=== PATIENT | female | born 1945 | race Two or more races ===

== ENCOUNTER 2020-05-05 09:59 | Outpatient (CLI) | payer OTHER ==
[~2020-05-05 09:59] MED LIST: ANTIVERT12.5 MG; LANTUS100 U/ML; LIPITOR80 MG; LISINOPRIL20 MG; NEURONTIN300 MG; TENORMIN25 MG; TENORMIN50 M1
== END 2020-05-05 10:02 | disposition home or self-care (01) ==
LOC: SONOGRAMA 09:59
PROVIDERS: ATTEND Pathology Anatomic Pathology & Clinical Pathology
DX: E04.2 Nontoxic multinodular goiter (principal); C73 Malignant neoplasm of thyroid gland; D34 Benign neoplasm of thyroid gland; E06.5 Other chronic thyroiditis